=== PATIENT | female | born 1995 | race Caucasian/White ===

== ENCOUNTER 2020-09-19 20:31 | Outpatient (CLI) | payer BC | END 2020-09-19 20:32 | disposition home or self-care (01) | LOC: COV 20:31 | PROVIDERS: ATTEND Family Medicine | DX: R05 Cough (principal); R11.0 Nausea; M79.10 Myalgia, unspecified site; R53.83 Other fatigue; Z20.828 Contact with and (suspected) exposure to other viral communicable diseases ==